=== PATIENT | female | born 1980 | race Caucasian/White ===

== ENCOUNTER 2019-01-27 06:20 | Day surgery (SDC) | payer OTHER ==
[2019-01-27] MEDS: BUPIVACAINE 0.5%/EPI (SDV) 30 ML INJ
[2019-01-27] MEDS ORDERED: PROPOFOL 20 ML ×2 (07:35→08:51)
[2019-01-27] MEDS ORDERED: LIDOCAINE 2% (SDV) 5 ML INJ (07:35)
[2019-01-27] MEDS ORDERED: FENTAnyl 50 MCG/ML VIAL ×2 (07:36→09:00)
[2019-01-27] MEDS ORDERED: CEFAZOLIN 1 GM INJ (07:36)
[2019-01-27] MEDS ORDERED: OXYCODONE/ACETAMINOPHEN (5/325) TAB PO ×2 (08:30→10:00)
[2019-01-27] MEDS ORDERED: FENTAnyl 50 MCG/ML VIAL IV (08:30)
[2019-01-27] MEDS ORDERED: MIDAZOLAM 1 MG/ML 2 ML INJ IV (08:30)
[2019-01-27] MEDS ORDERED: MIDAZOLAM 1 MG/ML 2 ML INJ (08:48)
[2019-01-27] MEDS: TRIAMCINOLONE ACET 40 MG/ML INJ (09:16)
[2019-01-27] MEDS: ONDANSETRON 4 MG INJ IV (09:43)
[2019-01-27] MEDS: FENTAnyl 50 MCG/ML VIAL IV ×2 (09:43→09:57)
[2019-01-27] MEDS: MEPERIDINE 25 MG INJ IV (10:13)
[2019-01-27] MEDS: OXYCODONE/ACETAMINOPHEN (5/325) TAB PO (10:17)
== END 2019-01-27 11:25 | disposition home or self-care (01) ==
LOC: SDS 06:20
DX: L91.0 Hypertrophic scar (principal)
CPT/HCPCS: 11406; 88304